=== PATIENT | male | born 1980 | race Caucasian/White ===

== ENCOUNTER 2023-04-20 12:34 | Outpatient (CLI) | payer MEDICARE, SELFPAY | END 2023-04-20 12:35 | disposition home or self-care (01) | PROVIDERS: PCP Family Medicine; Visit Provider Family Medicine | DX: I10 Essential (primary) hypertension (principal); E78.5 Hyperlipidemia, unspecified; E83.52 Hypercalcemia; K76.0 Fatty (change of) liver, not elsewhere classified; E66.01 Morbid (severe) obesity due to excess calories | CPT/HCPCS: 80048; 80061; 82310; 83970 ==

== ENCOUNTER 2024-05-17 11:01 | Outpatient (CLI) | payer MEDICARE, SELFPAY | END 2024-05-17 11:02 | disposition home or self-care (01) | PROVIDERS: PCP Family Medicine; Visit Provider Family Medicine | DX: I10 Essential (primary) hypertension (principal); R53.83 Other fatigue; Z13.220 Encounter for screening for lipoid disorders; Z13.29 Encounter for screening for other suspected endocrine disorder | CPT/HCPCS: 80048; 80061; 84443; 84460; 85025 ==

== ENCOUNTER 2025-03-06 15:47 | Emergency (ER) | payer MEDICARE, SELFPAY ==
--- OUTSIDE RECORDS SUMMARY | 2025-03-06 15:50 | XMS_ITS | Clinical Summary ---
Author Organization [facility] Address [address] [place] [address] Care Team Providers Care Clinical Administrative Coordinator Name Role Phone Warren Grissom MD Primary Care Provider [phone] Source Comments You are receiving this document as you are listed as the primary care provider,follow-up provider, or the patient has been referred to you for consultation.This is in compliance with the Medicare and[facility] EHR Incentive Program,which states Providers who transition their patient to another setting of careor provider of care or refers their patient to another provider of care shouldprovide summary care record for each transition of care or referral. [facility] Allergies Active Allergy Reactions Criticality Noted Date Comments Latex Rash 06/04/2012 Penicillins Hives High 02/28/2011 Medications omeprazole (PRILOSEC) 20 MG capsule Take 1 Capsule by mouth daily for 30 days. Take 1 hour before a meal. 90 Capsule 1 0 Active hydrOXYzine HCl (ATARAX) 25 MG tablet Take 1-2 Tablets by mouth three times a day as needed for Anxiety or Other (sleep). 180 Tablet 5 0 Active fluticasone propionate (FLONASE) 50 MCG/ACT nasal solutionIndicatio ns:Acute non-recurrent frontal sinusitis Place 2 Sprays into both nostrils daily. 16 g 8 1 Active chlorhexidine gluconate (HIBICLENS) 4 % external liquidIndications :Hidradenitis suppurativa Use to wash groin region once daily 473 mL 3 1 Active ketoconazole (NIZORAL) 2 % cream Apply topically daily. To aa on feet 120 g 11 1 Active ARIPiprazole (ABILIFY) 10 MG tabletIndications :Major depressive disorder, recurrent, moderate (HRC) 1 po q day 30 Tablet 1 1 Active DULoxetine (CYMBALTA) 60 MG capsule 2 po q day 60 Capsule 1 1 Active losartan-hydrochl orothiazide (HYZAAR) 50-12.5 MG tablet Take 1 Tablet by mouth daily. 90 Tablet 1 1 Active PROAIR HFA 108 (90 Base) MCG/ACT inhalerIndication s:Moderate persistent asthma without complication (HRC) INHALE 1-2 PUFFS BY MOUTH EVERY 4 HOURS NEEDED FOR WHEEZING. 1 Each 1 1 Active ADVAIR HFA 115-21 MCG/ACT inhalerIndication s:Moderate persistent asthma without complication (HRC) INHALE 2 PUFFS BY MOUTH TWICE DAILY. RINSE MOUTH OR GARGLE WITH WATER AFTER USE. 3 Each 2 Active busPIRone (BUSPAR) 15 MG tablet Take 1 Tablet (15 mg) by mouth three times a day. -- Appt is needed tor future refills (overdue!) 90 Tablet 2 Active Active Problems Problem Noted Date Diagnosed Date Moderate persistent asthma without complication 08/20/2020 Anxiety 03/29/2018 Hidradenitis suppurativa 03/29/2018 Severe obstructive sleep apnea 07/03/2017 Overview (07/21/2020): Setting: AutoPAP 11-15 cmH20 Supplied by: [employer] PSG done: 05-18-16 HST RDI/LUC 79 Lowest O2 Sat: 73% Essential hypertension 07/03/2017 Adjustment disorder with mixed anxiety and depre ssed mood 06/05/2012 Borderline personality disorder 06/05/2012 Tobacco abuse 06/05/2012 Tourette disorder Immunizations Immunization Administration Dates Next Due Influenza IIV4 (Quadrivalent) 0.5mL (72528) 03/25 MMR 12/25/1992 PPSV23 (Pneumovax) 06/19/2020 Pfizer Monovalent 12+ Purple Top 02/10/2021,07/24,07/18/2020 Td (7+ yrs) 03/05/2019 Tdap 05/04/2016,09/23/2004 Family History Medical History Relation Name Comments Cancer Father lukemia Diabetes, Type II Father Cancer, Lung Mother Diabetes, Type II Sister Cancer, Colon Negative Family History Cancer, Prostate Negative Family History Relation Name Status Comments Father Mother Sister Social History Tobacco Use Types Packs/Day Years Used Date Smoking Tobacco: Every Day Cigarettes 0.3 Last attempted to quit: 03/29/2019 Smokeless Tobacco: Never Tobacco Cessation:Ready to Q uit: Yes Comments:trying to quit Alcohol Use Standard Drinks/Week Comments No 0 (1 standard drink = 0.6 oz pur e alcohol) Sex and Gender Information Value Date Recorded Sex Assigned at Not on file Legal Sex Male 11:49 AM CDT Gender Identity Not on file Sexual Orientation Not on file Last Filed Vital Signs Vital Sign Reading Time Taken Comments Blood Pressure 135/83 03/26/2021 12:21 PM CIVIL PREPAREDNESS OFFICER Pulse 82 03/26/2021 12:21 PM CIVIL PREPAREDNESS OFFICER Temperature 36.8 C (98.2 F) 03/26/2021 12:21 PM CIVIL PREPAREDNESS OFFICER Respiratory Rate 18 03/26/2021 12:21 PM CIVIL PREPAREDNESS OFFICER Oxygen Saturation 100% 03/26/2021 12:21 PM CIVIL PREPAREDNESS OFFICER Inhaled Oxygen Concentration - - Weight 136.1 kg (300 lb) 10/06/2020 11:42 AM CDT Height 182.9 cm (6') 10/06/2020 11:42 AM CDT Body Mass Index 40.69 10/06/2020 11:42 AM CDT Plan of Treatment Health Maintenance Due Date Last Done Comments Hep C Screening (Preventive Services) 1980 Asthma ACT (score of 20 or higher) 1984 HepB Vaccine (1) 1999 HPV Vaccine (1 - 3-dose SCDM series) 2007 Pneumococcal Vaccine (2 of 2 - PCV) 06/19/2021 06/19/2020 Adult Preventive Visit 06/19/2022 , 01/08/2020 COVID-19 Vaccine ( - 2024-2 6 season) 2024 02/10/2021, 08/08/2020, 07/18/2020 Influenza Vaccine (#1) 2024 04/08/2021 Cholesterol 03/17/2025 03/17/2020, 09/04/2018 DTaP/Tdap/Td Vaccine (4 - Tdap) 03/05/2029 03/05/2019, 05/04/2016, 09/23/2004 Zoster/Shingles Vaccine (1 o f 2) 2030 HIV Screening (Preventive Services) Completed 06/02/2020 HepA Vaccine Aged Out No longer eligi ble based on patient's age to complete this topic Hib Vaccine Aged Out No longer eligi ble based on patient's age to complete this topic IPV (Polio) Vaccine Aged Out No longe r eligible based on patient's age to complete this topic MCV4 Vaccine Aged Out No longer eligi ble based on patient's age to complete this topic Meningococcal B Vaccine Aged Out No l onger eligible based on patient's age to complete this topic Procedures Procedure Name Priority Date/Time Associated Diagnosis Comments HIV 1/2 AG/AB 4TH GEN Routine 06/02/2020 5:53 PM CIVIL PREPAREDNESS OFFICER Screening for HIV (human immunodeficiency virus) LIPID PANEL & DIRECT LDL (IF NEEDED) Routine 03/17/2020 9:10 AM CIVIL PREPAREDNESS OFFICER Essential hypertension from Last 3 Months or Most Recently Relevant to Health Maintenance Results * HIV 1/2 Ag/Ab 4th Generation (06/02/2020 5:53 PM CIVIL PREPAREDNESS OFFICER) HIV 1/2 Antigen/Antib ava (4th generation) Negative (Non Reactive) Negative (Non Reactive) 06/02/2020 10:05 PM CIVIL PREPAREDNESS OFFICER [facility] Comment:HIV-1 p24 Antigen an d HIV-1/HIV-2 Antibody not detected Blood Venipuncture / Unknown 06/02/2020 5:53 PM CIVIL PREPAREDNESS OFFICER 06/02/2020 5:59 PM CIVIL PREPAREDNESS OFFICER us Warren Grissom MD LAB_1 Final Result [facility] [address] * (ABNORMAL) Lipid Panel - LDLD If Trig High (03/17/2020 9:10 AM CIVIL PREPAREDNESS OFFICER) Cholesterol 135 0 - 199 mg/dL 03/17/2020 9:51 AM [facility] Triglyceride 140 <=149 mg/dL 03/17/2020 9:51 AM [facility] HDL Cholesterol 30(L) >=40 mg/dL 0 9:51 AM [facility] LDL, Calculated 77 <130 mg/dL 0 9:51 AM [facility] Non HDL Chol, Calculated 105 mg/dL 03/17/2020 9:51 AM [facility] Cholesterol/HDL Ratio 4.5 03/17/2020 9:51 AM [facility] Hours Fasting 16 03/17/2020 9:51 AM [facility] Blood Venipuncture / Unknown 03/17/2020 9:10 AM CIVIL PREPAREDNESS OFFICER 03/17/2020 9:[address] [facility] Warren Grissom MD LAB_1 Final Result [facility] [address] [place] [address], [facility] [phone] from Last 3 Months or Most Recently Relevant to Health Maintenance Insurance TRLR [phone] [id number] [facility] TRLR [address] [id number] [facility] Care Teams Clinical Administrative Coordinator Relationship Specialty [place] [address] [place] [address] PCP - General Family Practice 07/03/17
--- OUTSIDE RECORDS SUMMARY | 2025-03-06 15:50 | XMS_ITS | Clinical Summary ---
Author Organization [facility] Address [address] [place] [id number] Care Team Providers Care Adding Machine Operator Name Role Phone Clinic, No Pcp Or Primary Care Provider Unavaila ble Allergies Active Allergy Reactions Criticality Noted Date Comments Latex Rash 06/04/2012 Penicillins Hives 02/28/2011 Medications * This document contains information received from the source organization and may not represent a complete record from that organization. RESVERATROL ORAL Take 1,000 mg by mouth once daily. Active cholecalciferol (VITAMIN D) 1,000 unit capsule Take 1,000 Units by mouth once daily. Active albuterol HFA 90 mcg/actuation inhaler Inhale 2 Puffs by mouth 4 times daily if needed. Active hydroCHLOROthiaz rosy (HCTZ) 25 mg tablet Take 25 mg by mouth once daily. Active FLUoxetine (SARAFEM) 20 mg tablet Take 20 mg by mouth every morning. Active MULTIVITAMIN (DAILY VITAMINS ORAL) Take 1 Tab by mouth. Active Active Problems Problem Noted Date Diagnosed Date Mood disorder 08/30/2012 Adjustment disorder with mixed anxiety and depre ssed mood 06/05/2012 Cannabis abuse, episodic 06/05/2012 Nondependent amphetamine or related acting sympathomimetic abuse, continuous 06/05/2012 Borderline personality disorder 06/05/2012 Suicide attempt 06/05/2012 Numbness and tingling in hands 06/05/2012 Upper extremity weakness - bilateral 06/05/2012 Tobacco abuse 06/05/2012 Eczema 10/13/2011 Resolved Problems Problem Noted Date Diagnosed Date Resolved Date Morbid obesity 10/13/2011 06/03/2012 Immunizations Immunization Administration Dates Next Due Tdap 09/23/2004 Family History Medical History Relation Name Comments Good Health Brother Diabetes Father Cancer Mother of lung ca ncer at 48 Diabetes Sister Relation Name Status Comments Brother Father Mother Sister Social History Tobacco Use Types Packs/Day Years Used Date Smoking Tobacco: Every Day Cigarettes 0.5 21 Smokeless Tobacco: Former Tobacco Cessation:Ready to Q uit: Yes; Counseling Given: Yes Comments:information given Alcohol Use Standard Drinks/Week Comments No 0 (1 standard drink = 0.6 oz pur e alcohol) very rare Sex and Gender Information Value Date Recorded Sex Assigned at Not on file Legal Sex 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 Gender Identity Not on file Sexual Orientation Not on file Occupation Industry Job Start Date Job End Date Unemployed Not on file Not on file Not on file Obstetrics History Last Filed Vital Signs Vital Sign Reading Time Taken Comments Blood Pressure 152/98 12/29/2021 3:25 AM CDT Pulse 80 12/29/2021 3:25 AM CDT Temperature 36.6 C (97.8 F) 12/29/2021 3:25 AM CDT Respiratory Rate 20 12/29/2021 3:25 AM CDT Oxygen Saturation 99% 12/29/2021 3:25 AM CDT Inhaled Oxygen Concentration - - Weight 142.4 kg (313 lb 15 oz) 12/29/2021 3:25 A M CDT Height 180.3 cm (5' 11) 12/29/2021 3:25 AM CDT Body Mass Index 43.79 12/29/2021 3:25 AM CDT Plan of Treatment Health Maintenance Due Date Last Done Comments Depression screening for age 12+ 1992 HIV for age 15-65 1995 BMI (ht and wt on same day) for age 18+ 1998 Hepatitis C screening for ag e 18-79 1998 Hepatitis B series for 19+ ( 1 of 3 - 19+ 3-dose series) 1999 HPV series for age 9-45 (1 - 3-dose SCDM series) 2007 Tetanus booster 09/23/2014 09/23/2004 Lipids for age 35-44 10/12/2016 10/13/2011 Influenza Vaccine (#1) 2024 RSV vaccine for adults or (1 - 1-dose 75+ series) 2055 Pneumococcal series for age 6-49 Aged Out No longer eligible based on patient's age to complete this topic Procedures Procedure Name Priority Date/Time Associated Diagnosis Comments LIPID PANEL Routine 10/13/2011 11:44 AM CDT Screening for lipoid disorders from Last 3 Months or Most Recently Relevant to Health Maintenance Results * (ABNORMAL) LIPID PANEL (10/13/2011 11:44 AM CDT) CHOLESTEROL,TOTAL 136 100 - 199 mg/dL [facility] TRIGLYCERIDES 78 <150 mg/dL [facility] HDL CHOLESTEROL 39(L) >40 mg/dL [facility] CHOL/HDL RATIO 3.49 <4.50 [facility] LDL CHOLESTEROL 81 <131 mg/dL [facility] PATIENT STATUS Fasting [facility] Blood specimen (specimen) BLOOD SPECIMEN / Unknown 10/13/2011 11:44 AM CDT 10/13/2011 11:40 AM CDT us Blossom Willa Nwogu MBBS CHEMISTRY Final R esult [facility] [address] [facility] [place] [address] from Last 3 Months or Most Recently Relevant to Health Maintenance Insurance [facility] [place] Advance Directives * Full Code (Latest Code Status on File) Date Activated Date Inactivated Comments 08/29/2012 8:19 PM 09/05/2012 5:52 PM * Full Code Date Activated Date Inactivated Comments 06/04/2012 7:40 PM 06/07/2012 3:45 PM Care Teams Adding Machine Operator Relationship Specialty Start Date End Date Clinic, No Pcp Or . PCP - General 12/26/21
[2025-03-06 16:00] VITALS: BP 174/92; PULSE 90; RESP 22; TEMP 37.3; O2SAT 97; BMI 43.2
== END 2025-03-06 17:22 | disposition home or self-care (01) ==
PROVIDERS: PCP Family Medicine
DX: R26.89 Other abnormalities of gait and mobility (principal)

== ENCOUNTER 2025-03-14 11:16 | Outpatient (CLI) | payer MEDICARE, SELFPAY | END 2025-03-14 11:17 | disposition home or self-care (01) | PROVIDERS: PCP Family Medicine; Visit Provider Family Medicine | DX: K04.7 Periapical abscess without sinus (principal) | CPT/HCPCS: 85025; 86140 ==